=== PATIENT | male | born 1990 | race Caucasian/White ===

== ENCOUNTER 2019-05-18 12:30 | Emergency (ER) | payer OTHER ==
[~2019-05-18] VITALS: Ht 193 cm; Wt 99.8 kg
== END 2019-05-18 15:18 | disposition home or self-care (01) ==
LOC: ER 12:30
DX: S00.431A Contusion of right ear, initial encounter (principal); W18.09XA Striking against other object with subsequent fall, initial encounter; Y93.89 Activity, other specified; Y92.038 Other place in apartment as the place of occurrence of the external cause; Y99.8 Other external cause status